=== PATIENT | male | born 1960 | race Caucasian/White ===

== ENCOUNTER → 2016-09-29 | Outpatient (CLI) | payer BC ==
--- NOTE | 2016-09-29 10:27 | XR ---
EXAMINATION TYPE: XR shoulder complete LT DATE OF EXAM: 09/29/2016 CLINICAL HISTORY: Left shoulder pain. Previous rotator cuff repair. TECHNIQUE: Three views of the left shoulder are obtained. COMPARISON: None. FINDINGS: There is no acute fracture/dislocation evident in the left shoulder. The acromioclavicula r and glenohumeral joint spaces appear within normal limits. The visualized ribs are intact and unre markable. Minimal sclerosis is seen in the greater tuberosity as well as mild acromioclavicular arthr opathy. IMPRESSION: There is no acute fracture or dislocation in the left shoulder.
--- NOTE | 2016-09-29 10:30 | XR ---
EXAMINATION TYPE: XR cervical spine limited DATE OF EXAM: 09/29/2016 TECHNIQUE: Frontal, lateral, and open mouth view of the cervical spine are obtained. HISTORY: M50.30 cervical disc deg COMPARISON: None FINDINGS: The cervical spine is visualized in its entirety from C1 thru the top of T1 level, it is s atisfactory in alignment without evidence of acute fracture or dislocation. Disc space narrowing and endplate sclerosis as well as an anterior osteophyte are seen at C6-C7. Uncovertebral hypertrophy is also noted at this level. To lesser degree uncovertebral hypertrophy is also present at C4-C5 and C5 -C6. The pre-vertebral soft tissue appears within normal limits. The C1-C2 articulation is within no rmal limits on the open mouth view. IMPRESSION: 1. No acute fracture or dislocation is seen in the cervical spine. 2. Degenerative disc disease of the cervical spine most pronounced at C6-C7.
== END | disposition home or self-care (01) ==
LOC: RADXRMAIN 09:45
PROVIDERS: ATTEND Family Medicine
DX: M50.323 Other cervical disc degeneration at C6-C7 level (principal); M75.102 Unspecified rotator cuff tear or rupture of left shoulder, not specified as traumatic
CPT/HCPCS: 72040

== ENCOUNTER → 2019-10-15 | Outpatient (CLI) | payer BC ==
--- NOTE | 2019-10-15 12:31 | XR ---
EXAMINATION TYPE: XR lumbar spine 2 or 3V DATE OF EXAM: 10/15/2019 Comparison: 3 views Clinical History: 58-year-old male M54.16 Radiculopathy lumbar region Findings: [id number] disc space narrowing from L3 through S1 levels with endplate spondylosis. Trace grad e 1 retrolisthesis at L2-L3 and L3-L4. Remaining alignment is maintained. Vertebral body heights are preserved. Hypertrophic facet arthropathy mid to lower lumbar spine. Impression: 1. Mild to moderate degenerative disc disease L3-S1 levels. 2. Hypertrophic facet arthropathy with trace grade 1 retrolisthesis at L2-L3 and L3-L4. 3. No vertebral compression collapse.
== END | disposition home or self-care (01) ==
LOC: RADXRMAIN 09:51
PROVIDERS: ATTEND Family Medicine
DX: M51.17 Intervertebral disc disorders with radiculopathy, lumbosacral region (principal); M43.16 Spondylolisthesis, lumbar region; M46.96 Unspecified inflammatory spondylopathy, lumbar region
CPT/HCPCS: 72100

== ENCOUNTER → 2019-11-20 | Outpatient (CLI) | payer BC ==
--- NOTE | 2019-11-20 09:22 | MR ---
EXAMINATION TYPE: MR lumbar spine wo/w con DATE OF EXAM: 11/20/2019 COMPARISON: Lumbar radiograph 10/15/2019 HISTORY: Radiculopathy, lumbar region TECHNIQUE: Multiplanar, multisequence images of the lumbar spine were acquired without and with administration o f 9.5 mL of intravenous Gadavist contrast. Spinal alignment is normal. Vertebral body heights are preserved. Vertebral bone marrow is normal in signal. A few scattered vertebral body hemangiomas are seen. Multilevel degenerative disc disease, as described by level below. Mild multilevel disc desiccation. Lower thoracic cord is normal in signal. Conus terminates normally at T12. Cauda equina nerve roots a re normal in course and caliber. Paraspinal soft tissues are unremarkable. Visualized upper sacroiliac joints appear intact. No suspicious postcontrast enhancement. T12-L1: No posterior disc herniation, protrusion, or bulging. No canal stenosis. Foramina are patent bilaterally. L1-L2: Mild posterior bulging. Mild canal stenosis. Facet arthropathy, with left posterior facet syno vial cyst. Foramina are patent bilaterally. L2-L3: Minimal posterior bulging. No canal stenosis. Facet arthropathy. Foramina are patent bilateral ly. L3-L4: There is circumferential bulging with superimposed right subarticular and foraminal disc protr usion with moderate mass effect on the ventral thecal sac and right lateral recess. Right ligamentum flavum hypertrophy and facet arthropathy. Mild overall canal stenosis. Foramina are moderately narrow ed on the right and mildly narrowed on the left. L4-L5: Moderate circumferential disc bulge. Facet arthropathy. No canal stenosis. Foramina are modera tely narrowed on the right and severely narrowed on the left. L5-S1: Mild disc bulging. No canal stenosis. Foramina are patent bilaterally. Cortical and peripelvic T2 hyperintense renal cysts. IMPRESSION: Degenerative disc disease emphysematous arthropathy contributing to varying degrees of neural foramin al narrowing and canal stenosis as above. No high-grade canal stenosis.
== END | disposition home or self-care (01) ==
LOC: RADMRIMAIN 07:22
PROVIDERS: ATTEND Family Medicine
DX: M48.061 Spinal stenosis, lumbar region without neurogenic claudication (principal); M51.16 Intervertebral disc disorders with radiculopathy, lumbar region
CPT/HCPCS: 72158; A9585

== ENCOUNTER → 2020-01-09 | Outpatient (CLI) | payer BC | END | disposition home or self-care (01) | LOC: LABWHC1 15:49 | PROVIDERS: ATTEND Family Medicine | DX: Z03.89 Encounter for observation for other suspected diseases and conditions ruled out (principal); Z20.828 Contact with and (suspected) exposure to other viral communicable diseases | CPT/HCPCS: U0003; C9803 ==

== ENCOUNTER → 2020-01-31 | Outpatient (CLI) | payer BC ==
--- NOTE | 2020-01-31 13:09 | XR ---
EXAMINATION TYPE: XR chest 2V DATE OF EXAM: 01/31/2020 COMPARISON: None HISTORY: 59 year-old male shortness of breath, dyspnea TECHNIQUE: Frontal and lateral views FINDINGS: The cardiomediastinal silhouette, aorta, and pulmonary vasculature are within normal limits. Medial r ight basilar opacity suspected to represent vascular confluence and summation artifact. Otherwise, no consolidation or pleural effusion. IMPRESSION: Medial right basilar opacity, suspected summation artifact and vascular shadows. Short interval follo w-up to demonstrate stability. Otherwise, no acute process seen.
== END | disposition home or self-care (01) ==
LOC: RADXRMAIN 11:11
PROVIDERS: ATTEND Family Medicine
DX: J98.4 Other disorders of lung (principal)
CPT/HCPCS: 71046

== ENCOUNTER → 2020-03-18 | Outpatient (CLI) | payer BC ==
--- NOTE | 2020-03-18 12:37 | XR ---
EXAMINATION TYPE: XR chest 2V DATE OF EXAM: 03/18/2020 COMPARISON: This x-ray 01/31/2020 HISTORY: Cough, R05 TECHNIQUE: Frontal and lateral views of the chest are obtained. FINDINGS: There is no focal air space opacity, pleural effusion, or pneumothorax seen. The cardiac silhouette size is within normal limits. Bronchial wall thickening. The osseous structures are intac t. IMPRESSION: Correlate for bronchitis, reactive airways disease, follow-up as indicated
== END | disposition home or self-care (01) ==
LOC: RADXRMAIN 08:27
PROVIDERS: ATTEND Nurse Practitioner
DX: R05 Cough (principal)
CPT/HCPCS: 71046

== ENCOUNTER → 2020-03-18 | Outpatient (CLI) | payer BC | END | disposition home or self-care (01) | LOC: LABWHC1 08:54 | PROVIDERS: ATTEND Nurse Practitioner | DX: R05 Cough (principal) | CPT/HCPCS: 36415; 85652; 86140 ==

== ENCOUNTER → 2020-04-03 | Outpatient (CLI) | payer BC ==
--- NOTE | 2020-04-03 09:54 | ECHOF ---
Referral Reason:I10 MEASUREMENTS -------- HEIGHT: 180.3 cm WEIGHT: 93.9 kg BP: RVIDd: 3.1 cm (< 3.3) IVSd: 1.2 cm (0.6 - 1.1) LVIDd: 4.3 cm (3.9 - 5.3) LVPWd: 1.6 cm (0.6 - 1.1) IVSs: 1.8 cm LVIDs: 1.8 cm LVPWs: 1.8 cm LAESV Index (A-L): 16.55 ml/m Ao Diam: 3.1 cm (2.0 - 3.7) AV Cusp: 1.7 cm (1.5 - 2.6) LA Diam: 3.3 cm (2.7 - 3.8) MV EXCURSION: 17.354 mm (> 18.000) MV EF SLOPE: 110 mm/s (70 - 150) EPSS: 0.5 cm MV E Jd: 0.62 m/s MV DecT: 188 ms MV A Jd: 0.82 m/s MV E/A Ratio: 0.76 RAP: 5.00 mmHg RVSP: 26.20 mmHg FINDINGS -------- This was a technically good study. The left ventricular size is normal. There is mild concentric left ventricular hypertrophy. Overa ll left ventricular systolic function is normal with, an EF between 55 - 60 %. The diastolic fillin g pattern is normal for the age of the patient 10.07. The right ventricle is normal in size. The left atrial size is normal. Normal LA size by volume 22+/-6 ml/m2. The right atrial size is normal. Interatrial and interventricular septum intact. The aortic valve is trileaflet and appears structurally normal. The mitral valve is normal. There is trace mitral regurgitation. The tricuspid valve appears structurally normal. Trace tricuspid regurgitation present. Right mitchel tricular systolic pressure is normal at < 35 mmHg. There is no pulmonic regurgitation present. The aortic root size is normal. Normal inferior vena cava with normal inspiratory collapse consistent with estimated right atrial pre ssure of 5 mmHg. There is no pericardial effusion. CONCLUSIONS -------- 1. The left ventricular size is normal. 2. There is mild concentric left ventricular hypertrophy. 3. Overall left ventricular systolic function is normal with, an EF between 55 - 60 %. 4. The diastolic filling pattern is normal for the age of the patient 10.07 5. There is trace mitral regurgitation. 6. Trace tricuspid regurgitation present. 7. There is no pericardial effusion. PANTOGRAPH I ENGRAVER: Elly Patterson RDCS
--- NOTE | 2020-04-03 10:18 | P.STRESS ---
- Stress Test Note Stress Test Results/Findings: Exam Performed: NM stress cardiolite complete Exam Date: 04/03/20 Reason for Exam: HTN Height: 5 ft 11 in Weight: 94.1 kg Protocol: CARDIOLITE LISA Stage: 2 Duration of Exercise: 6:45 Resting Heart Rate: 92 Resting Blood Pressure: 137/83 Maximum Achieved Heart Rate: 157 Maximum Achieved Blood Pressure: 202/88 85% PMHR: 139 100% PMHR: 163 METS: 8.1 Technologist Comment: Stress Test Results/Findings: This is a 59-year-old gentleman with history of hypertension and diabetes being evaluated for symptoms of chest pain. Stress data: Baseline EKG showed sinus rhythm with QRS duration. Blood pressure at rest is 137/83, pulse rate of 92. Patient walked on the Lisa protocol for 6 minutes and 45 seconds achieving a maximum heart rate of 157 with a blood pressure of 202/88. EKGs taken during and after exercise did not reveal any significant changes from the baseline. Patient did not experience any chest pain. Final impression: #1. Negative stress test #2. Patient did not express any chest pain #3. No arrhythmias noted. 4. Report on the nuclear images to be provided by radiologist.
--- NOTE | 2020-04-03 15:39 | NM ---
EXAMINATION TYPE: NM stress cardiolite complete DATE OF EXAM: 04/03/2020 COMPARISON: NONE HISTORY: R07.9, thoracic pain, hypertension TECHNIQUE: After the intravenous administration of 9.9 mCi Tc 99m Sestamibi - Rest images obtained 4 5 minutes post injection. The patient exercised using a LISA protocol and 1 minute prior to peak e xercise was injected with 25.3 mCi Tc 99m Sestamibi - Stress images obtained 20 minutes post injectio n. FINDINGS: The patient achieved greater than 85% predicted maximum heart rate. There may be some mild diminished radiotracer along the inferior wall on the stress images. The dista l inferior wall has improved radiotracer on resting images. Cardiac base has milder improvement. Celso r maps do not identify this defect. Diaphragmatic artifact is not identified. Ejection fraction of 65% is normal. Wall motion is normal. IMPRESSION: 1. SPECT imaging suggests some mild stress-induced ischemic change along the inferior wall greater at the cardiac base within the cardiac apex. Artifact to account for this finding is not identified. Ho wever Polar maps wall motion and ejection fraction appear normal. Correlate with EKG changes.
== END | disposition home or self-care (01) ==
LOC: RADNMMAIN 07:49
PROVIDERS: ATTEND Family Medicine
DX: I08.1 Rheumatic disorders of both mitral and tricuspid valves (principal); R07.9 Chest pain, unspecified; I10 Essential (primary) hypertension
CPT/HCPCS: 93017; 93306; 78452; A9500

== ENCOUNTER → 2020-04-30 | Outpatient (CLI) | payer BC | LOC: RADCTMAIN 16:49 | PROVIDERS: ATTEND Nurse Practitioner Family | DX: Z53.9 Procedure and treatment not carried out, unspecified reason (principal); R05 Cough; I10 Essential (primary) hypertension ==

== ENCOUNTER → 2020-05-07 | Outpatient (CLI) | payer BC ==
[2020-05-07 07:56] LABS: African American GFR (CKD) >90 (>60 ml/min/1.73 sqM); Blood Urea Nitrogen 23 mg/dL (9-20); Non-African American GFR(CKD) >90 (>60 ml/min/1.73 sqM)
--- NOTE | 2020-05-07 09:04 | CT ---
EXAMINATION TYPE: CT angio chest DATE OF EXAM: 05/07/2020 8:15 AM COMPARISON: Chest x-ray March 18, 2020 HISTORY: Cough, pains in back at night, high blood pressure, possible covid in January. CT DLP: 390.1 mGycm Automated exposure control for dose reduction was used. CONTRAST: CTA scan of the thorax is performed with IV Contrast, patient injected with 100, wasted 26 ml mL of I sovue 370, pulmonary embolism protocol. MIP images are created and reviewed. FINDINGS: LUNGS: Exam is suboptimal as patient unable to hold breath. This degrades evaluation particularly for subcentimeter nodules. There is 10 x 9 mm subpleural nodule posterior right lower axial image 74 not ed. Some dependent atelectasis bilateral lower lungs is present. There are smaller 5 mm left lower lo be nodule medially on image 79. Additional nodularity or nodular consolidation medial left lower lobe there are approximately 84. No pleural effusion or pneumothorax. Tracheobronchial tree is patent. MEDIASTINUM: There is suboptimal bolus with most dense contrast in SVC and heterogeneity in the pulmo nary arteries. No acute pulmonary embolism is evident however. Some enhancement of the aorta without aneurysm or dissection. Normal three-vessel origin. Mild/moderate coronary artery calcification is a lso present. There it is slightly enlarged subcarinal lymph node 1.6 x 1.3 cm image 65. Few prominent but subcentimeter right hilar lymph nodes. No pericardial effusion is seen. OTHER: No additional significant abnormality is seen. IMPRESSION: Suboptimal study without acute pulmonary embolism. No suspicious acute pulmonary process. Some right lower lobe nodules most concern is 10 x 9 mm posterior subpleural nodule. Neoplasm cannot be excluded. Further investigation with PET CT is advised.
== END | disposition home or self-care (01) ==
LOC: RADCTMAIN 07:06
PROVIDERS: ATTEND Family Medicine
DX: R91.8 Other nonspecific abnormal finding of lung field (principal); D49.9 Neoplasm of unspecified behavior of unspecified site
CPT/HCPCS: 82565; 84520; 71275; 36415; Q9967

== ENCOUNTER → 2020-05-09 | Outpatient (CLI) | payer BC ==
--- NOTE | 2020-05-12 06:29 | PE ---
EXAMINATION TYPE: PET CT fusion skull to thigh DATE OF EXAM: 05/09/2020 COMPARISON: CTA chest May 07, 2020. HISTORY: Solitary pulmonary nodule, abnormal CT. TECHNIQUE: Following the intravenous administration of 9.51 mCi of F-18 FDG, whole body images are p erformed from the skull base to the midthigh. Images are reviewed on the computer in the coronal, ax ial, and sagittal planes. Reconstructed rotating images are created on independent workstation and r eviewed on the computer. A localization and attenuation correction CT is performed in conjunction w ith the PET scan. Blood glucose level was 125. SCAN: Initial Scan FINDINGS: SKULL BASE AND NECK: Focus of hypermetabolic uptake posterior aspect upper pole right thyroid lobe i mage 58, max SUV is 8.88. Possible subcentimeter thyroid nodule or even parathyroid adenoma. Follow-u p advised. CHEST, MEDIASTINUM, AND HILAR REGION: Slightly hypermetabolic prominent right anterior superior 8 x 7 mm mediastinal lymph node, max SUV 3.13. Stable 10 mm subpleural superior right lower lobe nodule approximately 104 is ametabolic. Slightly enlarged 1.6 x 1.1 cm subcarinal lymph node axial image 97, max SUV 2.85. Mildly hypermetabo lic subcentimeter right hilar lymph node axial image 3, max SUV 2.82. ABDOMEN AND PELVIS: No adrenal masses. No areas of abnormal metabolic uptake. OSSEOUS STRUCTURES: No suspicious abnormal hypermetabolic uptake. OTHER CT: Distal colonic diverticula. Enlarged prostate consistent with BPH. Moderate concentric wall thickening of bladder presumed outlet obstruction related to BPH, correlate clinically. IMPRESSION: Nonspecific findings, no suspicious hypermetabolic uptake in the 10 mm superior right low er lobe nodule. Nonspecific thoracic lymph nodes noted. Posterior right thyroid lesion possible nodul e versus parathyroid adenoma has the most prominent hypermetabolic uptake, follow up advised based on clinical correlation.
== END ==
LOC: RADPETMAIN 17:11
PROVIDERS: ATTEND Family Medicine
DX: R91.1 Solitary pulmonary nodule (principal)
CPT/HCPCS: 78815; A9552

== ENCOUNTER → 2020-06-10 | Outpatient (CLI) | payer BC | LOC: LABWHC1 08:08 | PROVIDERS: ATTEND Otolaryngology | DX: E04.1 Nontoxic single thyroid nodule (principal) | CPT/HCPCS: 36415; 82330; 84439; 84443 ==

== ENCOUNTER → 2020-12-11 | Outpatient (CLI) | payer BC ==
--- NOTE | 2020-12-11 16:34 | US ---
EXAMINATION TYPE: US thyroid st tissue head/neck DATE OF EXAM: 12/11/2020 COMPARISON: PET, CT angio chest CLINICAL HISTORY: E04.1 THYROID NODULE. GLAND SIZE: Right Lobe: 5.7 x 2.0 x 1.9 cm Overall Parenchyma: homogenous Left Lobe: 4.1 x 1.9 x 1.5 cm Overall Parenchyma: heterogeneous Isthmus Thickness: 1.0 cm NODULES RIGHT: # of nodules measured on right: 1 1. 1.1 X 1.0 x 0.8 cm, lower pole , cystic or almost completely cystic, hypoechoic nodule, which is wider than tall, with smooth margins, without echogenic foci. TR 3 LEFT: # of nodules measured on left: 2 1. 0.3 X 0.3 x 0.2 cm, mid pole, almost completely cystic, hypoechoic nodule, which is wider than t all, with smooth margins, with echogenic wall focus. 2. 0.5 X 0.4 x 0.4 cm, lower pole, cystic cluster, hypoechoic nodule, which is wide as is tall, wi th ill-defined margins, without echogenic foci. ISTHMUS: # of nodules measured in the isthmus: 1 1. 0.4 X 0.3 x 0.2 cm almost completely cystic, hypoechoic nodule, which is wider than tall, with s mooth margins, with echogenic foci. Bilateral neck scanned: hyperechoic lymph node seen inferior to left thyroid = 0.8 x 0.9 x 0.6cm. IMPRESSION: Mildly suspicious nodule. Follow-up exam recommended 2017 ACR TI-RADS LEVEL: TR-RADS 3 - Mildly Suspicious: Follow if > 1.5 cm, FNA if > 2.5 cm *Highest TI-RADS level nodule reported
== END | disposition home or self-care (01) ==
LOC: RADUSWWP 15:31
PROVIDERS: ATTEND Otolaryngology
DX: E04.2 Nontoxic multinodular goiter (principal)
CPT/HCPCS: 76536

== ENCOUNTER → 2022-07-20 | Outpatient (CLI) | payer BC ==
--- NOTE | 2022-07-20 09:28 | US ---
EXAMINATION TYPE: US thyroid st tissue head/neck DATE OF EXAM: 07/20/2022 COMPARISON: 12/11/2020 CLINICAL INDICATION: Male, 61 years old with history of E04.1 NONTOXIC SINGLE THYROID NODULE; Thyroid nodules GLAND SIZE: Right Lobe: 5.9 x 2.1 x 1.7 cm Overall Parenchyma: homogenous Left Lobe: 4.5 x 1.5 x 1.7 cm Overall Parenchyma: homogeneous Isthmus Thickness: 7 mm NODULES RIGHT: # of nodules measured on right: 1 1. 1.3 X 1.0 x 1.0 cm, lower lateral, mixed cystic and solid, hypoechoic TR 4 nodule, which is wide r than tall, with smooth margins, without echogenic foci. Prior size: 1.1 x .8 x 1.0 cm LEFT: # of nodules measured on left: A few tiny scattered 3 mm and smaller nodules. ISTHMUS: # of nodules measured in the isthmus: A couple tiny 4 mm smaller nodules. Bilateral neck scanned, no evidence of lymphadenopathy. IMPRESSION: Solitary dominant TR 4 nodule in the right lobe measuring 1.3 x 1.0 cm (stable to minimally larger fr om prior where it measured 1.1 x 1.0 cm). Continue to follow.
== END | disposition home or self-care (01) ==
LOC: RADUSWWP 06:47
PROVIDERS: ATTEND Otolaryngology
DX: E04.1 Nontoxic single thyroid nodule (principal)
CPT/HCPCS: 76536

== ENCOUNTER 2023-05-25 07:15 | Day surgery (SDC) | payer BC ==
[2023-05-25] MEDS: LACTATED RINGERS 1,000 ML IV SCH (07:57)
[2023-05-25 08:07] LABS: Glucose,Whole Blood 130 mg/dL (70-110)
[2023-05-25 08:25] VITALS: PULSE 67; TEMP 97
[2023-05-25] MEDS ORDERED: PROPOFOL 10 MG/ML 20 ML VIAL IV ONE (08:41)
--- NOTE | 2023-05-25 08:59 | P.PCN ---
Date of Procedure: 05/25/23 Procedure(s) Performed: BRIEF HISTORY: Patient is a 62-year-old pleasant white scheduled for an elective colonoscopy as a part of evaluation of prior history of colon polyps. Last coloscopy was 7 years ago. PROCEDURE PERFORMED: Colonoscopy with snare polypectomy PREOPERATIVE DIAGNOSIS: History of colon polyps. IV sedation per Anesthesia. PROCEDURE: After informed consent was obtained, the patient, was brought into the endoscopy unit. IV sedation was administered by Anesthesia under continuous monitoring. Digital rectal examination was normal. Initially the Olympus CF-160 flexible video colonoscope was then inserted in the rectum, gradually advanced into the cecum without any difficulty. Careful examination was performed as the scope was gradually being withdrawn. Ileocecal valve and the appendiceal orifice were visualized and appeared normal. Prep was excellent. Mucosa of the cecum, ascending colon, transverse colon, appeared normal. The descending colon there was a 5 limited polyp that was removed by cold snare polypectomy. Rest of the descending colon, sigmoid colon, and rectum appeared normal. Scattered diffuse diverticulosis seen. Retroflexion was performed in the rectum and no lesions were seen. The patient tolerated the procedure well. IMPRESSION: 5 mm ascending colon polyp status post cold snare polypectomy Scattered diffuse diverticulosis RECOMMENDATIONS: Findings of this examination were discussed with the patient as well as his family. He was advised to follow with the biopsy results. If the biopsy results adenoma, recommend repeat colonoscopy in 5 years..
[2023-05-25 09:41] VITALS: BP 134/79; RESP 20
== END 2023-05-25 09:36 | disposition home or self-care (01) ==
LOC: ORWHC2ENDO 07:15
PROVIDERS: ATTEND Internal Medicine Gastroenterology
DX: Z12.11 Encounter for screening for malignant neoplasm of colon (principal); K63.5 Polyp of colon; K57.30 Diverticulosis of large intestine without perforation or abscess without bleeding; I10 Essential (primary) hypertension; E78.5 Hyperlipidemia, unspecified; E11.9 Type 2 diabetes mellitus without complications; Z79.84 Long term (current) use of oral hypoglycemic drugs; Z86.010 Personal history of colon polyps; Z79.899 Other long term (current) drug therapy
CPT/HCPCS: 88305; 45385; J2704

== ENCOUNTER → 2023-06-23 | Outpatient (CLI) | payer BC ==
[2023-06-23 11:56] LABS: African American GFR (CKD) >90 (>60 ml/min/1.73 sqM); Blood Urea Nitrogen 23 mg/dL (9-20); Non-African American GFR(CKD) >90 (>60 ml/min/1.73 sqM)
--- NOTE | 2023-06-28 17:48 | CT ---
EXAMINATION TYPE: CT chest w con CT DLP: 489.30 mGycm, Automated exposure control for dose reduction was used. DATE OF EXAM: 06/23/2023 12:18 PM COMPARISON: Chest radiograph from same day. Multiple CTs of the chest with most recent on . CLINICAL INDICATION:Male, 62 years old with history of R91.1 SOLITARY PULMONARY NODULE; PHH, Solitary pulmonary nodule, routine follow up. TECHNIQUE: Multiple axial images were obtained through the chest. Sagittal and coronal reformats were created for review. Contrast used:100 mL of Isovue 300 with IV Contrast (None if empty) Oral contrast used: (None if empty) FINDINGS: LUNGS/ PLEURA: Right subpleural nodule measuring approximately 9 mm is unchanged from prior CT of 11/2020. This long-term stability is very reassuring. A 2 mm nodule is seen in the medial left lowe r lobe on series 4, image 41. Previously mentioned 9 mm right lower lobe nodule is on series 4, image 35. The lung parenchyma is otherwise unremarkable. AIRWAY: Patent and unremarkable. HEART: Size within normal limits. MEDIASTINUM: No gross evidence of adenopathy. VASCULATURE: No aortic aneurysm. MUSCULOSKELETAL: No acute osseous abnormalities SOFT TISSUES/LYMPH NODES: Unremarkable. LOWER NECK: No significant findings. UPPER ABDOMEN: No significant findings. IMPRESSION: Right lower lobe and left lower lobe nodules are stable prior exam from 05/07/2020. This long-term st ability is reassuring and relevant guidelines would suggest no further follow-up for these nodules is required. Follow up recommendations for incidental pulmonary nodules, if there are any, are per [employer] [employer] or [place] [employer]. [email or web address]/[email or web address]?lang=us
== END | disposition home or self-care (01) ==
LOC: RADCTMAIN 11:09
PROVIDERS: ATTEND Internal Medicine Critical Care Medicine
DX: R91.8 Other nonspecific abnormal finding of lung field (principal)
CPT/HCPCS: 82565; 84520; 71260; 36415; Q9967

== ENCOUNTER → 2023-08-29 | Outpatient (CLI) | payer BC ==
--- NOTE | 2023-08-29 16:35 | US ---
EXAMINATION TYPE: US thyroid st tissue head/neck DATE OF EXAM: 08/29/2023 COMPARISON: US CLINICAL INDICATION: Male, 62 years old with history of E04.01 SINGLE NODULE; F/U GLAND SIZE: Right Lobe: 5.4 x 2.3 x 1.7 cm Overall Parenchyma: homogeneous Left Lobe: 4.6 x 1.7 x 1.6 cm Overall Parenchyma: heterogeneous Isthmus Thickness: 0.7 cm NODULES RIGHT: # of nodules measured on right: 1 1. 1.2 X 1.1 x 1.2 cm, mid Prior size: 1.3 x 1.0 x 1.0 cm TIRADS Score: 4 TIRADS Category 4: Composition: Solid or almost completely solid (2 points). Echogenicity: Hypoechoic (2 points). Shape: Wider than tall (0 points). Margin: Smooth (0 points). Echogenic foci: None or large comet-tail artifacts (0 points) Recommendation: If >1.5cm: FNA; If >1cm: Follow up at 1,2, 3,5 years LEFT: # of nodules measured on left: Multiple, sub-centimeter cystic nodules scattered throughout, largest 3mm as visualized on prior ISTHMUS: # of nodules measured in the isthmus: 0 Bilateral neck scanned, no evidence of lymphadenopathy. Nodule right lobe minimally changed when comp ared to prior. IMPRESSION: Right thyroid nodule that is stable from prior. This is near borderline meeting criteria for FNA and has slightly increased in size from 2020.
== END | disposition home or self-care (01) ==
LOC: RADUSWWP 15:56
PROVIDERS: ATTEND Otolaryngology
DX: E04.1 Nontoxic single thyroid nodule (principal)
CPT/HCPCS: 76536